=== PATIENT | male | born 1965 | race Hispanic/Latino ===

== ENCOUNTER 2024-04-17 20:52 | Emergency (ER) | payer OTHER ==
[2024-04-17] MEDS ORDERED: dexAMETHasone 10 MG/ML VIAL ONE (21:26)
[2024-04-17] MEDS ORDERED: HYDROCODONE/APAP 5/325 MG TAB ONE (21:26)
[2024-04-17] MEDS ORDERED: DIAZEPAM 5 MG TABLET ONE (21:26)
--- NOTE | 2024-04-17 21:41 | RAD REPORT ---
EXAM DESCRIPTION: US - Extremity Venous Uni Ltd - 04/17/2024 9:35 pm CLINICAL HISTORY: Pain COMPARISON: None. TECHNIQUE: Real-time sonographic evaluation of the right lower extremity deep venous system was perf ormed. FINDINGS: Normal compressibility, flow augmentation, phasic flow and spontaneous flow is identified in the right lower extremity deep venous system. No intraluminal filling defects seen. IMPRESSION: No DVT in the right lower extremity.
--- NOTE | 2024-04-17 22:08 | ER ---
Nurse's Notes [facility] Name: Juan Carlos Mendoza Age: 59 yrs Sex: Male : 1965 Arrival Date: 04/17/2024 Time: 20:52 Bed 15 Private MD: Diagnosis: Sciatica, right side Presentation: 04/17 20:54 Chief complaint: Patient states: right sided gluteal pain radiating to right knee X20 lg3 days. Coronavirus screen: Client denies travel out of the [place] in the last 14 days. At this time, the client does not indicate any symptoms associated with coronavirus-19. Ebola Screen: No symptoms or risks identified at this time. Initial Sepsis Screen: Does the patient meet any 2 criteria? No. Patient's initial sepsis screen is negative. Does the patient have a suspected source of infection? No. Patient's initial sepsis screen is negative. Risk Assessment: Do you want to hurt yourself or someone else? Patient reports no desire to harm self or others. Onset of symptoms is unknown. 20:54 Method Of Arrival: EMS: [facility] lg3 20:54 Acuity: ANDERS 4 lg3 Triage Assessment: 20:56 General: Appears in no apparent distress. uncomfortable, Behavior is calm, cooperative. lg3 Pain: Complains of pain in right gluteus nguyen Pain radiates to right leg Pain currently is 5 out of 10 on a pain scale. at worst was 10 out of 10 on a pain scale. EENT: No deficits noted. No signs and/or symptoms were reported regarding the EENT system. Neuro: No deficits noted. Parker Agitation-Sedation Scale (RASS): 0 - Alert and Calm Level of Consciousness is awake, alert, obeys commands, Oriented to person, place, time, situation. Cardiovascular: No deficits noted. Denies chest pain, shortness of breath, Capillary refill < 3 seconds Clubbing of nail beds is absent JVD is absent Patient's skin is warm and dry. Respiratory: No deficits noted. Airway is patent Respiratory effort is even, unlabored, Respiratory pattern is regular, symmetrical, Breath sounds are clear bilaterally. GI: No deficits noted. No signs and/or symptoms were reported involving the gastrointestinal system. Abdomen is round non-distended. : No deficits noted. No signs and/or symptoms were reported regarding the genitourinary system. Derm: No deficits noted. No signs and/or symptoms reported regarding the dermatologic system. Skin is intact, is healthy with good turgor, Skin is dry, Skin is normal, Skin temperature is warm. Musculoskeletal: Circulation, motion, and sensation intact. Range of motion: intact in all extremities, Reports pain in right leg. Historical: - Allergies: 20:56 No Known Allergies; lg3 - Home Meds: 20:56 Lisinopril Oral [Active]; Vascepa oral [Active]; Synthroid Oral [Active]; lg3 - PMHx: 20:56 high triglicerides; hign cholesterol; Hypertensive disorder; lg3 - PSHx: 20:56 pacemaker; Cholecystectomy; lg3 - Immunization history:: Adult Immunizations up to date, Client reports receiving the 2nd dose of the Covid vaccine. - Infectious Disease History:: Denies. - Social history:: Smoking status: Patient denies any tobacco usage or history of. Patient uses alcohol, only on a social basis. Screenin:59 [facility] ED Fall Risk Assessment (Adult) History of falling in the last 3 months, lg3 including since admission No falls in past 3 months (0 pts) Confusion or Disorientation No (0 pts) Intoxicated or Sedated No (0 pts) Impaired Gait No (0 pts) Mobility Assist Device Used No (0 pt) Altered Elimination No (0 pt) Score/Fall Risk Level 0 - 2 = Low Risk Oriented to surroundings, Maintained a safe environment, Educated pt \T\ family on fall prevention, incl call for assistance when getting out of bed, Assessed \T\ reinforced patient's understanding of fall precautions. Abuse screen: Denies threats or abuse. Denies injuries from another. Nutritional screening: No deficits noted. Tuberculosis screening: No symptoms or risk factors identified. Assessment: 20:59 General: see triage assessment. lg3 22:26 Reassessment: Patient appears in no apparent distress at this time. Patient and/or lg3 family updated on plan of care and expected duration. Pain level reassessed. Patient is alert, oriented x 3, equal unlabored respirations, skin warm/dry/pink. Patient states feeling better. Patient states symptoms have improved. Vital Signs: 20:54 BP 124 / 73; Pulse 73; Resp 16 S; Temp 98.1(O); Pulse Ox 92% on R/A; Weight 90.72 kg lg3 (R); Height 5 ft. 8 in. (R); Pain 5/10; 22:26 BP 124 / 80; Pulse 61; Resp 17 S; Temp 97.9(O); Pulse Ox 95% on R/A; lg3 20:54 Body Mass Index 30.41 (90.72 kg, 172.72 cm) lg3 20:54 Pain Scale: Adult lg3 ED Course: 20:54 Patient arrived in ED. lg3 20:54 Jaimie Queen RN is Primary Nurse. lg3 20:54 Nadja Brown FNP-C is PHCP. kb 20:54 Paul Gifford MD is Attending Physician. kb 20:56 Triage completed. lg3 20:56 Arm band placed on right wrist. lg3 20:59 Patient has correct armband on for positive identification. Placed in gown. Bed in low lg3 position. Call light in reach. Side rails up X 1. Client placed on continuous cardiac and pulse oximetry monitoring. NIBP monitoring applied. Door closed. Noise minimized. Warm blanket given. Pillow given. Family accompanied patient. 21:37 US Extremity Venous Unilateral Ltd In Process Unspecified. EDMS 22:26 No provider procedures requiring assistance completed. Patient did not have IV access lg3 during this emergency room visit. 22:56 Primary Nurse role handed off by Jaimie Queen RN lg3 22:56 Jaimie Queen RN is Primary Nurse. lg3 Administered Medications: 21:48 Drug: HYDROcodone-acetaminophen PO 5 mg-325 mg 1 tabs PO once Route: PO; lg3 22:27 Follow up: Response: No adverse reaction lg3 21:48 Drug: Dexamethasone IM 10 mg IM once Route: IM; Site: right deltoid; lg3 22:27 Follow up: Response: No adverse reaction lg3 21:49 Drug: Diazepam PO 5 mg PO once Route: PO; lg3 22:27 Follow up: Response: No adverse reaction lg3 23:08 Drug: Lidoderm Topical Patch 5 % (700 mg/patch) 1 patches Topical once; leave on for 12 lg3 hours; cover most painful area; may cut into smaller pieces Route: Topical; Site: affected area; 23:08 Follow up: Response: No adverse reaction lg3 Medication: 20:59 VIS not applicable for this client. lg3 Outcome: 22:08 Discharge ordered by MD. cotto 22:47 Discharged to home ambulatory, with family, lg3 22:47 Condition: stable 22:47 Discharge instructions given to patient, Instructed on discharge instructions, follow up and referral plans. medication usage, Demonstrated understanding of instructions, follow-up care, medications, Prescriptions given X 3, 22:48 Patient left the ED. lg3 23:08 Patient left the ED. lg3 Signatures: Dispatcher [employer] EDNadja Suarez, BAG LINER-C BAG LINER-Jaimie Nunes, RN RN lg3
--- NOTE | 2024-04-17 22:08 | EDPHYS ---
Physician Documentation [facility] Name: Juan Carlos Mendoza Age: 59 yrs Sex: Male : 1965 Arrival Date: 04/17/2024 Time: 20:52 Bed 15 Private MD: ED Physician Paul Gifford HPI: 04/18 00:45 This 59 yrs old Male presents to ER via EMS with complaints of Knee Pain. kb 00:45 Patient is a 59-year-old male who presents for right low back pain that radiates down kb the right buttock to his knee with muscle spasms that began 20 days ago. States pain was getting better until today or tonight and it started flaring up again. Denies any numbness or tingling. Denies any urinary complaints, incontinence. Denies any injury or trauma. Patient states he does a lot of traveling for work, including a lot of driving and flying.. Historical: - Allergies: 04/17 20:56 No Known Allergies; lg3 - Home Meds: 20:56 Lisinopril Oral [Active]; Vascepa oral [Active]; Synthroid Oral [Active]; lg3 - PMHx: 20:56 high triglicerides; hign cholesterol; Hypertensive disorder; lg3 - PSHx: 20:56 pacemaker; Cholecystectomy; lg3 - Immunization history:: Adult Immunizations up to date, Client reports receiving the 2nd dose of the Covid vaccine. - Infectious Disease History:: Denies. - Social history:: Smoking status: Patient denies any tobacco usage or history of. Patient uses alcohol, only on a social basis. ROS: 04/18 00:46 Constitutional: As per HPI kb Exam: 00:46 Constitutional: This is a well developed, well nourished patient who is awake, alert, kb and in no acute distress. Head/Face: Normocephalic, atraumatic. ENT: Moist Mucous membranes Cardiovascular: Regular rate Respiratory: Respirations even and unlabored. No increased work of breathing. Talking in full sentences Abdomen/GI: Soft, non-tender. No distention Skin: Warm, dry with normal turgor. Normal color. MS/ Extremity: Pulses equal, no cyanosis. Neurovascular intact. Full, normal range of motion. Neuro: Awake and alert, GCS 15, oriented to person, place, time, and situation. Moves all extremities. Normal gait. 00:46 Back: pain, that is moderate, of the right low back, ROM is painful, with all movement, vertebral tenderness, is not appreciated, Vital Signs: 04/17 20:54 BP 124 / 73; Pulse 73; Resp 16 S; Temp 98.1(O); Pulse Ox 92% on R/A; Weight 90.72 kg lg3 (R); Height 5 ft. 8 in. (R); Pain 5/10; 22:26 BP 124 / 80; Pulse 61; Resp 17 S; Temp 97.9(O); Pulse Ox 95% on R/A; lg3 20:54 Body Mass Index 30.41 (90.72 kg, 172.72 cm) lg3 20:54 Pain Scale: Adult lg3 MDM: 20:54 Patient medically screened. kb 04/18 00:46 Differential diagnosis: arthritis, strain, sciatica, Herniated disc DVT. Data reviewed: kb vital signs, nurses notes. Test considered but Not performed: X-ray: X-ray considered but patient has no bony tenderness. Historians other than the Patient: EMS: [facility]. Counseling: I had a detailed discussion with the patient and/or guardian regarding the historical points, exam findings, and any diagnostic results supporting the discharge/admit diagnosis, radiology results, the need for outpatient follow up, a family practitioner, to return to the emergency department if symptoms worsen or persist or if there are any questions or concerns that arise at home. 04/17 21:04 Order name: US Extremity Venous Unilateral Ltd; Complete Time: 21:43 kb Administered Medications: 04/17 21:48 Drug: HYDROcodone-acetaminophen PO 5 mg-325 mg 1 tabs PO once Route: PO; lg3 22:27 Follow up: Response: No adverse reaction lg3 21:48 Drug: Dexamethasone IM 10 mg IM once Route: IM; Site: right deltoid; lg3 22:27 Follow up: Response: No adverse reaction lg3 21:49 Drug: Diazepam PO 5 mg PO once Route: PO; lg3 22:27 Follow up: Response: No adverse reaction lg3 23:08 Drug: Lidoderm Topical Patch 5 % (700 mg/patch) 1 patches Topical once; leave on for 12 lg3 hours; cover most painful area; may cut into smaller pieces Route: Topical; Site: affected area; 23:08 Follow up: Response: No adverse reaction lg3 Disposition Summary: 04/17/24 22:08 Discharge Ordered Notes: Location: Home kb Condition: Stable kb Diagnosis - Sciatica, right side kb Followup: kb - With: Emergency Department - When: As needed - Reason: Worsening of condition Followup: kb - With: Private Physician - When: 2 - 3 days - Reason: Recheck today's complaints, Continuance of care, Re-evaluation by your physician Discharge Instructions: - Discharge Summary Sheet kb - Sciatica, [id number] kb - Back Exercises, [id number] kb Forms: - Medication Reconciliation Form kb - Antibiotic Education kb - Prescription Opioid Use kb - Patient Portal Instructions kb - Leadership Thank You Letter Prescriptions: - Prednisone 20 mg Oral Tablet - take 1 tablet ORAL route once daily for 5 days; 5 tablet; Refills: 0, Product kb Selection Permitted - Diclofenac Sodium 75 mg Oral tablet, delayed release (enteric coated) - take 1 tablet ORAL route 2 times per day As needed; 30 tablet; Refills: 0, kb Product Selection Permitted - orphenadrine citrate 100 mg Oral Tablet Sustained Release - take 1 tablet ORAL route 2 times per day As needed; 20 tablet; Refills: 0, kb Product Selection Permitted Addendum: 04/19/2024 05:40 I was immediately available for consultation during this patient's visit. I did not e c2 personally see the patient or discuss the patient with the DANY. . Signatures: Dispatcher [employer] Nadja Batista FNP-C FNP-Jaimie Nunes RN RN lg3 Paul Gifford MD MD ec2
[2024-04-17 23:19] VITALS: BP 124/80; TEMP 97.9; O2SAT 95
== END 2024-04-17 23:08 | disposition home or self-care (01) ==
LOC: ER 20:52
DX: M54.31 Sciatica, right side (principal)
CPT/HCPCS: 93971; 96372; 99284; J1100